=== PATIENT | female | born 1995 | race Caucasian/White ===

== ENCOUNTER 2016-12-03 01:40 | Emergency (ER) | payer OTHER ==
[2016-12-03 02:12] VITALS: BP 114/66
== END 2016-12-03 02:12 | disposition home or self-care (01) ==
LOC: ED 01:40
DX: L50.9 Urticaria, unspecified (principal)
CPT/HCPCS: J7512

== ENCOUNTER 2018-05-22 21:50 | Emergency (ER) | payer OTHER ==
[~2018-05-22] VITALS: Ht 157.5 cm; Wt 78.5 kg
[2018-05-22 21:59] VITALS: Ht 157.5 cm; Wt 78.5 kg
[2018-05-22 23:16] VITALS: BP 116/72
== END 2018-05-22 23:16 | disposition home or self-care (01) ==
LOC: ED 21:50
DX: B34.9 Viral infection, unspecified (principal); J02.9 Acute pharyngitis, unspecified; Z91.013 Allergy to seafood